=== PATIENT | female | born 1945 | race Caucasian/White ===

== ENCOUNTER → 2016-10-13 09:40 | Outpatient (CLI) | payer MEDICARE, BC | END | disposition home or self-care (01) | LOC: D.MRI 10-06 10:00 | DX: I63.9 Cerebral infarction, unspecified (principal) ==

== ENCOUNTER 2018-05-23 12:27 | Emergency (ER) | payer MEDICARE, BC ==
[~2018-05-23] VITALS: Ht 182.9 cm; Wt 104.5 kg
[2018-05-23 12:28] VITALS: Ht 182.9 cm; Wt 104.5 kg
[2018-05-23] MEDS ORDERED: UNKNOWN DIABETIC MED (12:30)
[2018-05-23 12:54] LABS: BASOPHILS 0.7 % (0-2); EOSINOPHILS 3.8 % (0-7); HEMOGLOBIN 11.5 g/dL (12-16); IMMATURE GRANULOCYTES 0.4 % (0-5); LYMPHOCYTES 18.8 % (15-50); MCH 26.7 pg (26.0-34.0); MCHC 32.9 g/dL (31.0-37.0); MCV 81.4 fL (80.0-100.0); MEAN PLATELET VOLUME 10.1 fL (7.4-10.4); MONOCYTES 7.4 % (2-11); NEUTROPHILS 68.9 % (40-80); PLATELET COUNT 91 10x3/uL (130-400); RDW 15.2 % (11.5-14.5); WBC 4.5 10x3/uL (4.8-10.8)
[2018-05-23 13:19] LABS: ALBUMIN 3.6 g/dL (3.4-5.0); ANION GAP 13.3 mmol/L (8-16); BILIRUBIN - TOTAL 0.3 mg/dL (0.2-1.3); CALCIUM 8.9 mg/dL (8.5-10.1); CARBON DIOXIDE 27.5 mmol/L (21.0-32.0); CREATININE - SERUM 1.3 mg/dL (0.6-1.3); POTASSIUM - SERUM 3.8 mmol/L (3.5-5.1); PROTEIN - SERUM 7.1 g/dL (6.4-8.2)
[2018-05-23 13:25] LABS: PLATELET ESTIMATE DECREASED
[2018-05-23 14:11] LABS: APPEARANCE CLEAR (CLEAR); BILIRUBIN NEGATIVE (NEGATIVE); COLOR YELLOW (YELLOW); GLUCOSE 1000 mg/dL (NEGATIVE); KETONE NEGATIVE (NEGATIVE); NITRITE NEGATIVE (NEGATIVE); PROTEIN NEGATIVE (NEGATIVE); UROBILINOGEN NORMAL (NORMAL)
[2018-05-23 14:39] LABS: MAGNESIUM - SERUM 2.2 mg/dL (1.8-2.4); THYROID STIMULATING HORMONE 1.62 uIU/mL (0.36-3.74)
[2018-05-23 15:00] VITALS: BP 128/64
== END 2018-05-23 15:00 | disposition home or self-care (01) ==
LOC: EDSEX 12:27 → D.ER 12:27
PROVIDERS: Emergency Medicine
DX: R53.1 Weakness (principal); E11.65 Type 2 diabetes mellitus with hyperglycemia; I49.3 Ventricular premature depolarization